=== PATIENT | male | born 1960 | race Caucasian/White ===

== ENCOUNTER 2017-04-09 02:35 | Inpatient (IN) | payer BC ==
[~2017-04-09] VITALS: Ht 172.7 cm; Wt 125.6 kg
[2017-04-09 03:20] LABS: BASOPHIL % 0.5 % (0-2); PLATELET COUNT 265 x10^3mcL (130-400); RED CELL DISTRIBUTION WIDTH 12.3 % (11.5-14.5)
[2017-04-09 03:51] LABS: ALBUMIN 4.4 g/dL (3.4-5.0); BILIRUBIN TOTAL 1.1 mg/dL (0.20-1.00); CALCIUM 9.7 mg/dL (8.5-10.1); CARBON DIOXIDE 29.7 mmol/L (21-32); CREATININE SERUM 1.6 mg/dL (0.7-1.3)
[2017-04-09 03:57] LABS: POTASSIUM SERUM 2.9 mmol/L (3.5-5.1)
[2017-04-09] MEDS ORDERED: CHLORTHALIDONE25 MG PO (05:54)
[2017-04-09] MEDS ORDERED: METOPROLOL TART50 MG PO (05:55)
[2017-04-09] MEDS ORDERED: MINOXIDIL2.5 MG PO (05:55)
[2017-04-09] MEDS ORDERED: FLECAINIDE ACE100 MG (05:56)
[2017-04-09] MEDS ORDERED: PROCARDIA XL90 MG PO (05:56)
[2017-04-09] MEDS ORDERED: LISINOPRIL40 MG (05:56)
[2017-04-09 06:30] VITALS: BP 106/58
[2017-04-09 06:35] LABS: CHOLESTEROL/HDL RATIO 2.9; MAGNESIUM 1.8 mg/dL (1.8-2.4); PHOSPHOROUS 1.8 mg/dL (2.5-4.9)
[2017-04-09 06:41] LABS: T3 TOTAL 1.38 ng/mL
[2017-04-09 06:45] LABS: FREE T4 1.4 ng/dL (0.76-1.46); FREE THYROXINE INDEX 4.2 ug/dL (1.4-4.5); T4(THYROXINE) 11.8 ug/dL (4.7-13.3)
[2017-04-09 11:33] VITALS: BP 106/58
[2017-04-09 12:30] VITALS: BP 146/86
[2017-04-09 12:44] LABS: CALCIUM 9.6 mg/dL (8.5-10.1); CARBON DIOXIDE 32.9 mmol/L (21-32); CREATININE SERUM 1.7 mg/dL (0.7-1.3); POTASSIUM SERUM 3.2 mmol/L (3.5-5.1)
[2017-04-09 13:47] LABS: UA SPECIFIC GRAVITY >=1.030 (1.005-1.035); microscopic required? YES; urine erythrocyte TRACE (NEGATIVE)
[2017-04-09 14:26] LABS: AMPHETAMINE QUAL UR NONE DETECTED (NEG <=1000)
[2017-04-09 17:41] VITALS: BP 133/75
[2017-04-09 20:31] VITALS: BP 164/91
[2017-04-10 05:49] VITALS: BP 150/87
[2017-04-10 06:38] LABS: BASOPHIL % 0.2 % (0-2); PLATELET COUNT 231 x10^3mcL (130-400)
[2017-04-10 06:43] LABS: ALBUMIN 4.1 g/dL (3.4-5.0); CALCIUM 9.2 mg/dL (8.5-10.1); CARBON DIOXIDE 28.2 mmol/L (21-32); CREATININE SERUM 1.4 mg/dL (0.7-1.3); PHOSPHOROUS 3.1 mg/dL (2.5-4.9)
[2017-04-10 09:48] VITALS: BP 135/75
[2017-04-10 13:45] VITALS: BP 150/84
[2017-04-10 17:09] VITALS: BP 123/68
[2017-04-10 19:15] VITALS: BP 129/75
[2017-04-11 05:50] VITALS: BP 117/70
[2017-04-11 06:16] LABS: BASOPHIL % 0.5 % (0-2); PLATELET COUNT 195 x10^3mcL (130-400); RED CELL DISTRIBUTION WIDTH 13.9 % (11.5-14.5)
[2017-04-11 06:44] LABS: CALCIUM 8.1 mg/dL (8.5-10.1); CARBON DIOXIDE 30.4 mmol/L (21-32); CHLORIDE SERUM 105 mmol/L (98-107); CREATININE SERUM 1.1 mg/dL (0.7-1.3); GFR1 > 60 mL/min; GLUCOSE SERUM 119 mg/dL (74-106); SODIUM SERUM 142 mmol/L (136-145)
[2017-04-11 06:53] LABS: POTASSIUM SERUM 2.8 mmol/L (3.5-5.1)
[2017-04-11 09:35] VITALS: BP 132/77
[2017-04-11] MEDS ORDERED: ECO81 PO (12:32)
[2017-04-11] MEDS ORDERED: PHE25 PO (12:33)
[2017-04-11] MEDS ORDERED: COLACE100 MG PO ×2 (12:33→12:34)
[2017-04-11] MEDS ORDERED: ZOFRAN ODT4 MG SL (12:33)
[2017-04-11] MEDS ORDERED: GAS RELIEF 8080 MG PO (12:34)
[2017-04-11 12:50] VITALS: BP 132/77
== END 2017-04-11 14:00 | disposition home or self-care (01) | DRG 388 ==
LOC: ED 02:35 → DU 05:55 → MU 04-10 10:37
PROVIDERS: Emergency Medicine; Family Medicine; ADMIT Family Medicine
DX: K56.69 Other intestinal obstruction (principal); N17.0 Acute kidney failure with tubular necrosis; J98.11 Atelectasis; E87.6 Hypokalemia; K76.0 Fatty (change of) liver, not elsewhere classified; I10 Essential (primary) hypertension; E83.39 Other disorders of phosphorus metabolism; E78.5 Hyperlipidemia, unspecified; I48.91 Unspecified atrial fibrillation; D72.829 Elevated white blood cell count, unspecified; E80.6 Other disorders of bilirubin metabolism; R31.9 Hematuria, unspecified; Z79.899 Other long term (current) drug therapy; Z72.89 Other problems related to lifestyle
CPT/HCPCS: 80307; 83880; 84439; G0480; J1170; J2270; J2405; J2550; J2765; J3480; J7030; Q0092; Q9967